=== PATIENT | female | born 1985 | race African-American/Black ===

== ENCOUNTER 2016-09-02 20:42 | Emergency (ER) | payer MEDICAID ==
[~2016-09-02] VITALS: Ht 165.1 cm; Wt 108.4 kg
[2016-09-02] MEDS ORDERED: NKM (21:08)
[2016-09-02 21:15] VITALS: BP 122/85
[2016-09-02] MEDS ORDERED: NASONEX17 GM NASAL (21:43)
--- NOTE | 2016-09-02 21:43 | Emergency Room Report ---
History of Present Illness General Chief Complaint: Upper Respiratory Illness Source: Patient Present Illness HPI Is a 31-year-old female with no past medical history. She presents with chief complaint of nasal congestion. Onset today. She been taking her can be without much relief. No fever or chills but no nausea no vomiting. Does have a headache. Denies any other complaint. Allergies: Coded Allergies: No Known Allergies (Unverified , 09/02/16) Patient History Past Medical History: see triage record, old chart reviewed Past Surgical History: none Pertinent Family History: none Social History: Denies: smoking Last Menstrual Period: LAST WEEK Now: No Immunizations: other Reviewed Nursing Documentation: PMH: Agreed, PSxH: Agreed Nursing Documentation-PMH Past Medical History: No Stated History Review of Systems Eye: Denies: blurred vision, eye pain ENT: Reports: nose congestion, Denies: ear pain, throat swelling Respiratory: Denies: cough, shortness of breath Cardiovascular: Denies: chest pain, palpitations Gastrointestinal: Denies: abdominal pain, diarrhea, nausea, vomiting Musculoskeletal: Denies: back pain, joint pain Skin: Denies: rash Neurological: Denies: headache, numbness Endocrine: Denies: increased thirst, increased urine Hematologic/Lymphatic: Denies: easy bruising All Other Systems: negative except mentioned in HPI Physical Exam Vital Signs Date Time Temp Pulse Resp B/P Pulse Ox O2 Delivery O2 Flow Rate FiO2 09/02/16 21:00 98.2 72 18 122/85 99 Room Air vitals normal Sp02 EP Interpretation: reviewed General Appearance: well appearing, no apparent distress, alert Head: normocephalic, atraumatic Eyes: bilateral eye EOMI, bilateral eye PERRL ENT: hearing grossly normal, normal pharynx, other - TMs with slight fluid. Turbinates enlarged. Neck: full range of motion, supple, no meningismus Respiratory: chest non-tender, lungs clear, normal breath sounds Cardiovascular #1: regular rate, rhythm, no murmur Gastrointestinal: normal bowel sounds, non tender, no mass, no organomegaly, no bruit, non-distended Musculoskeletal: back normal, gait/station normal, normal range of motion Neurologic: alert, oriented x3 Psychiatric: mood/affect normal Skin: warm/dry Medical Decision Making Diagnostic Impression: Primary Impression: Viral upper respiratory infection ER Course She was viral illness. No evidence of bacterial infection. No evidence of meningitis. No evidence of sepsis or other serious bacterial infection. Last Vital Signs Date Time Temp Pulse Resp B/P Pulse Ox O2 Delivery O2 Flow Rate FiO2 09/02/16 21:00 98.2 72 18 122/85 99 Room Air Status: improved Disposition: HOME, SELF-CARE Condition: Stable Scripts Mometasone Furoate (NASONEX) 17 Gm [place].pump 2 SPRAYS NASAL DAILY, #1 GM 0 Refills Prov: HARPREET REYES M.D. 09/02/16 Additional Instructions: Followup with your Dr. in 7 days. Return to be having fever. Please fluid. You may try nasal spray. HARPREET REYES M.D. Sep 02, 2016 21:43
[2016-09-02 21:45] VITALS: BP 122/85
== END 2016-09-02 21:50 | disposition home or self-care (01) ==
LOC: EMR 21:33
DX: J06.9 Acute upper respiratory infection, unspecified (principal); B34.9 Viral infection, unspecified
CPT/HCPCS: 99283